=== PATIENT | female | born 1940 | race Caucasian/White ===

== ENCOUNTER 2016-08-05 13:10 | Emergency (ER) | payer OTHER ==
[2016-08-05] MEDS ORDERED: IOPAMIDOL 300 (61%) 150 ML VIAL IV ONE (13:11)
[2016-08-05] MEDS ORDERED: HYDROMORPHONE HCL 1 MG/ML SYRINGE ONE (16:21)
[2016-08-05] MEDS ORDERED: ONDANSETRON 4 MG/2ML 2 ML VIAL ONE (16:21)
[2016-08-05 16:31] LABS: ABSOLUTE NEUTROPHIL COUNT 5.7 K/mm3 (1.8-7.7); BASO % 0.1 % (0.2-1.0); HEMOGLOBIN 11.5 gm/l (12.0-16.0); IMM NEUT% 0.4 % (0-1); LYMPH # 0.8 (1.0-4.8); LYMPH % 10.3 % (15-45); MEAN CELL VOLUME 86.4 fl (81.0-99.0); MEAN CORPUSCULAR HEMOGLOBIN 28.4 pg (27.0-31.0); MEAN CORPUSCULAR HGB CONC 32.9 g/dl (33.0-37.0); MEAN PLATELET VOLUME 11.6 fl (7.4-10.4); MONO # 0.8 (0.0-0.8); MONO % 10.5 % (4-12); NEUT % 78.7 % (43-75); PLATELET COUNT 318 K/mm3 (130-400); RED CELL DISTRIBUTION WIDTH 14.9 % (11.5-14.5)
[2016-08-05] MEDS ORDERED: LACTATED RINGERS 1,000 ML ONE (16:51)
[2016-08-05 17:25] LABS: ALB/GLOB RATIO 1.3 (>1.0); ALBUMIN 3.4 gm/dL (3.5-5.7); CALCIUM 9.3 mg/dL (8.6-10.3)
--- NOTE | 2016-08-05 17:33 | RAD ---
ABDOMEN 2 VIEWS HISTORY: Nausea and vomiting. Upright and supine radiographs of the abdomen were acquired. COMPARISON: None. FINDINGS: BOWEL GAS PATTERN: Mild prominence of multiple loops of small bowel measuring up to 3.7 cm in caliber. No colonic dilatation. Moderately distended stomach. AIR-FLUID LEVELS: Multiple right-sided air-fluid levels. FREE AIR: No gross free air. ABDOMINOPELVIC CALCIFICATIONS: Pelvic phleboliths. Contrast within the bladder. Multiple surgical clips are seen. OSSEOUS STRUCTURES: No destructive lesions. Lower lumbar disc degeneration. LUNG CARVAJAL: Scarring versus atelectasis of the right lung base. Small left pleural effusion. IMPRESSION: 1. Distention and air-fluid levels of multiple right-sided bowel loops, focal ileus and developing obstruction are possible. No free air identified. 2. Small left pleural effusion. 3. Multiple surgical clips are seen. 4. Apparent contrast within the bladder.
--- NOTE | 2016-08-05 18:40 | CT ---
CT ABDOMEN AND PELVIS WITH CONTRAST HISTORY: Small bowel obstruction. Recent hysterectomy. TECHNIQUE: Following intravenous administration of 125 mL Isovue-300, contiguous axial images were acquired from the lung bases to the ischial tuberosities. Oral contrast was not administered. COMPARISON: Plain films of the same date. FINDINGS: LUNG BASES: Bibasilar atelectatic change with minimal pleural effusions, left greater than right. LIVER: Perihepatic fluid. STOMACH: Moderately severe distention. SPLEEN: No focal lesion. Mild perisplenic fluid. PANCREAS: No focal lesion. ADRENAL GLANDS: No mass effect. KIDNEYS: Lobulated contour of the kidneys with exophytic complex cystic mass lesion of the left kidney with apparent enhancing components measuring 5.7 x 4.4 x 4.5 cm in size, raising suspicion for malignancy. GALLBLADDER: Present. BOWEL: Notable distention of proximal small bowel with transition point seen at the central abdomen at the approximate L4-5 level, worrisome for adhesions and small bowel obstruction. The colon is largely nondistended. APPENDIX: Not clearly seen. PELVIC ORGANS: Post hysterectomy change, no adnexal mass effect. FREE FLUID: Minor pelvic free fluid. Upper abdominal free fluid as above. ABDOMINOPELVIC LYMPH NODES: No abnormally enlarged lymph nodes identified. ABDOMINAL AORTA: Normal caliber. OSSEOUS STRUCTURES: Prominent changes of lumbar spondylosis with facet degeneration at the L3-4 through L5-S1 levels prominent disc degeneration at these levels as well. Notable canal stenosis at the L3-4 and L4-5 levels. ANTERIOR ABDOMINAL WALL: Evidence of recent midline incision. IMPRESSION: 1. Findings compatible with small bowel obstruction with transition point at the central abdomen, suspicious for adhesions. Moderate free fluid, no free air. 2. Status post hysterectomy. 3. 5.7 cm left renal mass suspicious for malignancy. 4. Prominent changes of lumbar spondylosis with severe canal stenosis at L3-4 and L4-5 levels. 5. Bibasilar atelectasis with minimal pleural effusions. Findings discussed with Dr. Palumbo of the Emergency Medicine clinical service on 08/05/2016 at 1836 hours.
== END 2016-08-05 20:35 | disposition short-term general hospital (02) ==
LOC: ED 13:10
DX: K56.60 Unspecified intestinal obstruction (principal); I25.10 Atherosclerotic heart disease of native coronary artery without angina pectoris; I10 Essential (primary) hypertension